=== PATIENT | female | born 1990 | race African-American/Black ===

== ENCOUNTER 2020-09-09 16:44 | Emergency (ER) | payer MEDICAID ==
[~2020-09-09] VITALS: Ht 160 cm; Wt 86.0 kg
[~2020-09-09 16:44] MED LIST: FERR-43 PO; PREN-88 PO
[2020-09-09] MEDS ORDERED: TRAM50TA3 MT (20:23)
[2020-09-09] MEDS ORDERED: IBUP-1521 MT (20:23)
[2020-09-09 20:58] VITALS: BP 100/64
== END 2020-09-09 21:00 | disposition home or self-care (01) ==
LOC: ER 17:20
DX: S62.608A Fracture of unspecified phalanx of other finger, initial encounter for closed fracture (principal); X58.XXXA Exposure to other specified factors, initial encounter; Y93.89 Activity, other specified; Y92.89 Other specified places as the place of occurrence of the external cause; Y99.8 Other external cause status
CPT/HCPCS: 73660; 99283; Z7610